=== PATIENT | male | born 1945 | race Caucasian/White ===

== ENCOUNTER 2019-05-24 12:07 | Emergency (ER) | payer BC ==
--- NOTE | 2019-05-24 12:16 | EDM.PDOC ---
ED HPI GENERAL MEDICAL PROBLEM - General Chief Complaint: Upper Extremity Injury/Pain Stated Complaint: L THUMB/HAND INJURY Time Seen by Provider: 05/24/19 12:14 Source of Information: Reports: Patient, RN, RN Notes Reviewed History Limitations: Reports: No Limitations - History of Present Illness INITIAL COMMENTS - FREE TEXT/NARRATIVE: Pt presents to ER from home by POV with c/o bruising and swelling to left thumb & wrist area. Pt does not remember injuring area, and knows of no other cause. Denies any other area of bruising or bleeding. Pt states the area is a little tender, but not significantly so. Pt states the bruising has been there a couple of days. He was concerned because he is leaving to go to [employer] this week. Onset: Unknown/Unsure Duration: Day(s): (2-3), Constant Location: Reports: Upper Extremity, Left Quality: Reports: Ache Severity: Mild Improves with: Reports: Immobilization Worsens with: Reports: Movement Associated Symptoms: Reports: No Other Symptoms - Related Data Allergies Allergy/AdvReac Type Severity Reaction Status Date / Time cat hair/dander Allergy UNKNOWN Uncoded 05/24/19 12:11 Home Meds: Home Meds Loratadine [Claritin] 10 mg PO DAILY 02/19/14 [History] atorvaSTATin Calcium [Atorvastatin Calcium] 20 mg PO DAILY 02/19/14 [History] Past Medical History Cardiovascular History: Reports: High Cholesterol Social & Family History - Family History Family Medical History: Noncontributory - Living Situation & Occupation Living situation: Reports: Occupation: Employed Review of Systems - Review of Systems Review Of Systems: ROS reveals no pertinent complaints other than HPI. ED EXAM, GENERAL - Physical Exam Exam: See Below Exam Limited By: No Limitations General Appearance: Alert, WD/WN, No Apparent Distress Head: Atraumatic, Normocephalic Respiratory/Chest: No Respiratory Distress Cardiovascular: Normal Peripheral Pulses Neurological: Alert, Oriented, CN II-XII Intact, Normal Cognition, Normal Gait, No Motor/Sensory Deficits Psychiatric: Normal Affect, Normal Mood Course - Vital Signs Last Recorded V/S: Last Vital Signs Temp 97.6 F 05/24/19 12:12 Pulse 88 05/24/19 12:12 Resp 16 05/24/19 12:12 BP 157/88 H 05/24/19 12:12 Pulse Ox 97 05/24/19 12:12 - Orders/Labs/Meds Labs: Laboratory Tests 05/24/19 05/24/19 05/24/19 Range/Units 12:31 12:31 12:31 WBC 5.5 (5.0-10.0) 10^3/uL RBC 5.42 (4.6-6.2) 10^6/uL Hgb 15.5 (14.0-18.0) g/dL Hct 45.6 (40.0-54.0) % MCV 84.1 (80-100) fL MCH 28.6 (27.0-34.0) pg MCHC 34.0 (33.0-35.0) g/dL Plt Count 232 (150-450) 10^3/uL Neut % (Auto) 59.9 (42.2-75.2) % Lymph % (Auto) 29.0 (20.5-50.1) % [place] % (Auto) 9.8 H (2-8) % Eos % (Auto) 0.9 L (1.0-3.0) % Baso % (Auto) 0.4 (0.0-1.0) % PT 10.4 (9.0-12.0) SEC INR 1.0 (0.9-1.2) APTT 26.1 (22.0-34.0) SEC Sodium 136 (135-145) mmol/L Potassium 3.5 L (3.6-5.0) mmol/L Chloride 102 (101-111) mmol/L Carbon Dioxide 24.0 (21.0-31.0) mmol/L Anion Gap 13.5 BUN 9 (7-18) mg/dL Creatinine 1.0 (0.6-1.3) mg/dL Est Cr Clr Drug Dosing 66.77 mL/min Estimated GFR (MDRD) > 60 BUN/Creatinine Ratio 9.00 Glucose 104 (74-105) mg/dL Calcium 9.1 (8.4-10.2) mg/dl Total Bilirubin 1.1 H (0.2-1.0) mg/dL AST 26 (10-42) IU/L ALT 20 (10-60) IU/L Alkaline Phosphatase 52 (42-121) IU/L Total Protein 7.4 (6.7-8.2) g/dl Albumin 4.6 (3.2-5.5) g/dl Globulin 2.8 Albumin/Globulin Ratio 1.64 Departure - Departure Time of Disposition: 13:04 Disposition: Home, Self-Care 01 Condition: Good Clinical Impression: Contusion of left hand Qualifiers: Encounter type: initial encounter Qualified Code(s): S60.222A - Contusion of left hand, initial encounter - Discharge Information *PRESCRIPTION DRUG MONITORING PROGRAM REVIEWED*: No *COPY OF PRESCRIPTION DRUG MONITORING REPORT IN PATIENT CONSTANTINE: No Instructions: Hand Contusion Forms: ED Department Discharge Additional Instructions: No specific treatment needed. Have fun in [place]!
[2019-05-24 12:58] LABS: ANION GAP 13.5; CHLORIDE,CL 102 mmol/L (101-111); SODIUM,NA 136 mmol/L (135-145)
== END 2019-05-24 13:08 | disposition home or self-care (01) ==
LOC: DL.ED 12:07
DX: M79.81 Nontraumatic hematoma of soft tissue (principal); E78.00 Pure hypercholesterolemia, unspecified; Z91.048 Other nonmedicinal substance allergy status; Z79.899 Other long term (current) drug therapy
CPT/HCPCS: 36415; 80053; 85025; 85610; 85730; 99283

== ENCOUNTER 2020-09-28 06:06 | Day surgery (SDC) | payer BC ==
[~2020-09-28 06:06] MED LIST: Dextrose 5%-0.45% NaCl 1,000 ML IV SCH; Midazolam 1 MG/ML 2 ML SDV ONE; Sodium Chloride 0.9% 10 ML Syringe FLUSH PRN; fentaNYL 100 MCG/2 ML SDV ONE
[2020-09-28] MEDS ORDERED: fentaNYL 100 MCG/2 ML SDV IV ONE ×3 (06:07→07:11)
[2020-09-28] MEDS ORDERED: Midazolam 1 MG/ML 2 ML SDV IV ONE ×7 (06:07→07:19)
--- NOTE | 2020-09-28 08:01 | OR ---
DATE: 09/28/2020 PROCEDURE: Total colonoscopy. INSTRUMENT USED: [id number] Olympus video colonoscope. PREMEDICATIONS: Fentanyl 100 mcg intravenous, Versed 4 mg intravenous, nasal O2 cannula. The procedure was done under pulse oximetry, BP recording, and radiology services manager. INDICATION: The patient with previous colonic adenoma. Surveillance colonoscopic examination is done for detection of any polypoid lesions and removal, endoscopic hemostasis therapy if needed. DESCRIPTION OF PROCEDURE: Initial rectal exam showed firm prostatic bed. The colonoscope was passed with ease. Numerous scattered diverticula were noted, more so in the distal left colon along with deformity. The scope was passed with ease up to the ileocecal area. Photographs were taken of the normal- appearing cecum identified by appendiceal orifice and double-bulged ileocecal folds. No bleeding was noted from any of the visualized areas at the commencement of the examination. Bowel preparation was found to be adequate, Bush scale 2 in all the regions, total score 6. No stricture. No vascular ectasia. No large isolated ulcerations seen. No evidence of diffuse inflammatory bowel disease in the form of friability, contact bleeding, or ulcerations. No polyp or tumor mass identified. Probing the proximal sides of folds and flexures using adequate distention and clearing up the stool material, withdrawal of the scope was made, cecum to rectum time over 6 minutes. No bleeding was noted from any of the visualized areas at the completion of examination. IMPRESSION: Diverticulosis. The patient tolerated the procedure well. [facility] /[id number]
--- NOTE | 2020-09-28 17:33 | LETTER ---
09/28/2020 RE: RAJI NAJERA : 1945 [place] [address] Srinivasan: Mr. Raji Najera had colonoscopic examination done this morning, and he tolerated the procedure well. I herewith send a copy of the endoscopy note and photographs for your review. Thank you. Sincerely, [facility] /[id number]
== END 2020-09-28 09:34 | disposition home or self-care (01) ==
LOC: DL.ENDO 06:06
PROVIDERS: ATTEND Internal Medicine Gastroenterology
DX: Z12.11 Encounter for screening for malignant neoplasm of colon (principal); K57.30 Diverticulosis of large intestine without perforation or abscess without bleeding; R73.9 Hyperglycemia, unspecified; E78.00 Pure hypercholesterolemia, unspecified; Z86.010 Personal history of colon polyps; Z98.890 Other specified postprocedural states
CPT/HCPCS: 45378; J2250; J3010; J7042

== ENCOUNTER 2021-05-26 16:37 | Emergency (ER) | payer BC ==
[2021-05-26 17:23] LABS: ANION GAP 18.3 mEq/L (7-13); CHLORIDE,CL 102 mmol/L (98-107); SODIUM,NA 140 mmol/L (136-145)
--- NOTE | 2021-05-26 17:46 | EDM.PDOC ---
<Ritchie Miranda - Last Filed: 05/26/21 20:03> ED HPI GENERAL MEDICAL PROBLEM - General Chief Complaint: Respiratory Problem Stated Complaint: CHEST, HARD TIME BREATHING Time Seen by Provider: 05/26/21 17:20 - Related Data Allergies Allergy/AdvReac Type Severity Reaction Status Date / Time cat hair/dander Allergy UNKNOWN Uncoded 05/26/21 17:09 Home Meds: Home Meds Loratadine [Claritin] 10 mg PO DAILY PRN 02/19/14 [History] atorvaSTATin Calcium [Atorvastatin Calcium] 20 mg PO DAILY 02/19/14 [History] Ipratropium [Atrovent 0.03% Nasal [place]] 2 spray INH DAILY PRN 09/24/20 [History] Montelukast Sodium 10 mg PO BEDTIME 09/24/20 [History] Mupirocin Oint [Bactroban Oint] 1 squirt TOP BID 09/24/20 [History] Triamcinolone Acetonide [Nasacort AQ [place]] 2 spray INH BID PRN 09/24/20 [History] diphenhydrAMINE HCL [Diphenhydramine HCl] 25 mg PO BEDTIME PRN 09/24/20 [History] Donepezil HCl [Aricept] 5 mg PO ASDIRECTED 05/26/21 [History] Departure - Departure Time of Disposition: 20:03 Disposition: Home, Self-Care 01 Condition: Fair Clinical Impression: Community acquired pneumonia Qualifiers: Laterality: right Lung location: lower lobe of lung Qualified Code(s): J18.9 - Pneumonia, unspecified organism - Discharge Information *PRESCRIPTION DRUG MONITORING PROGRAM REVIEWED*: No *COPY OF PRESCRIPTION DRUG MONITORING REPORT IN PATIENT CONSTANTINE: No Instructions: Community-Acquired Pneumonia, Adult, [id number] Forms: ED Department Discharge Care Plan Goals: The patient and his were advised of the examination, lab and x-ray results during the visit. The patient was given an IV dose of Rocephin while in the ED. The patient was discharged with a script for Azithromycin (250 mg) #6 to take 2 by mouth on day 1 and 1 by mouth on days 2-5. If the patient has any additional symptoms or concerns, the patient should either return to the ED or visit his primary care facility. <Lulú Wayne - Last Filed: 05/27/21 07:31> ED HPI GENERAL MEDICAL PROBLEM - General Source of Information: Reports: Patient, RN, RN Notes Reviewed, Significant Other History Limitations: Reports: Altered Mental Status (History of dementia) - History of Present Illness INITIAL COMMENTS - FREE TEXT/NARRATIVE: Bo is a 75 y/o male with a history of dementia who presents to the ED via personal vehicle with his due to shortness of breath. The patient reports his transient symptom occurred approximately one hour prior to his arrival to this facility. He states he was putting pop cans in the refrigerator and was suddenly unable to catch his breath. The problem was further exacerbated by climbing the stairs to find his . He denies recent illness, fever, shaking chills, vision changes, dizziness, cough, sore throat, chest pain/pressure, palpitations, nausea, vomiting, or abdominal pain. The patient is vaccinated for COVID. His notes he started Aricept yesterday. The patient denies history of tobacco, alcohol, or recreational drug use. Past Medical History HEENT History: Reports: Impaired Vision, Sinusitis, Other (See Below) Other HEENT History: papilloma of tongue. WEARS CORRECTIVE LENS Cardiovascular History: Reports: High Cholesterol, Hypertension Respiratory History: Reports: None Gastrointestinal History: Reports: None, Colon Polyp Genitourinary History: Other Genitourinary History: Prostatism 2015 Musculoskeletal History: Reports: None Neurological History: Reports: Alzheimers Disease Psychiatric History: Reports: None Endocrine/Metabolic History: Reports: None Hematologic History: Reports: None Immunologic History: Reports: None Oncologic (Cancer) History: Reports: None Dermatologic History: Reports: None - Infectious Disease History Infectious Disease History: Reports: None - Past Surgical History Head Surgeries/Procedures: Reports: None HEENT Surgical History: Reports: Tonsillectomy Cardiovascular Surgical History: Reports: None Respiratory Surgical History: Reports: None GI Surgical History: Reports: Cholecystectomy, Colonoscopy, Hernia Repair/Other, Polypectomy Male Surgical History: Reports: None Endocrine Surgical History: Reports: None Neurological Surgical History: Reports: None Musculoskeletal Surgical History: Reports: Arthroscopic Knee Oncologic Surgical History: Reports: None Dermatological Surgical History: Reports: None Social & Family History - Family History Family Medical History: No Pertinent Family History - Tobacco Use Tobacco Use Status *Q: Never Tobacco User - Caffeine Use Caffeine Use: Reports: Coffee, Soda - Recreational Drug Use Recreational Drug Use: No - Living Situation & Occupation Living situation: Reports: Occupation: Employed ED ROS GENERAL - Review of Systems Review Of Systems: Comprehensive ROS is negative, except as noted in HPI. ED EXAM, GENERAL - Physical Exam Exam: See Below Exam Limited By: No Limitations General Appearance: Alert, No Apparent Distress Eye Exam: Bilateral Eye: EOMI, Normal Inspection, PERRL (3mm) Ears: Normal External Exam, Normal Canal, Hearing Grossly Normal, Normal TMs Ear Exam: Bilateral Ear: Auricle Normal, Canal Normal, TM normal Nose: Normal Inspection, Normal Mucosa, No Blood Throat/Mouth: Normal Inspection, Normal Oropharynx, Normal Voice, No Airway C ompromise Head: Atraumatic, Normocephalic Neck: Normal Inspection, Supple, Non-Tender, Full Range of Motion. No: Lymphadenopathy (L), Lymphadenopathy (R) Respiratory/Chest: No Respiratory Distress, Lungs Clear, Normal Breath Sounds, No Accessory Muscle Use, Chest Non-Tender Cardiovascular: Normal Peripheral Pulses, Regular Rate, Rhythm, No Gallop, No Murmur, No Rub Peripheral Pulses: 2+: Radial (L), Radial (R) GI/Abdominal: Normal Bowel Sounds, Soft, No Distention, No Abnormal Bruit, No Mass, Pelvis Stable (Male) Exam: Deferred Rectal (Males) Exam: Deferred Back Exam: Normal Inspection, Full Range of Motion Extremities: Normal Inspection, Normal Range of Motion, Non-Tender, No Pedal Edema, Normal Capillary Refill Neurological: Alert, Oriented, CN II-XII Intact, Normal Cognition, Normal Gait, Normal Reflexes, No Motor/Sensory Deficits Psychiatric: Normal Affect, Normal Mood Skin Exam: Warm, Dry, Intact, Normal Color, No Rash. No: Cyanosis, Jaundice, Mottled, Pallor #1 Interpretation EKG Date: 05/26/21 Time: 16:45 Rhythm: NSR (1st Degree AVB) Rate (Beats/Min): 81 [place]: LAD-Left [place] Deviation P-Wave: Present QRS: Normal ST-T: Normal QT: Normal MO/PQ Interval: 0.249 Comparison: NA - No Prior EKG EKG Interpretation Comments: NSR with 1st Degree AVB; LAD; q-wave in AVR; No evidence of acute myocardial ischemia Course - Vital Signs Last Recorded V/S: Last Vital Signs Temp 98.4 F 05/26/21 17:04 Pulse 60 05/26/21 19:44 Resp 16 05/26/21 19:44 BP 139/90 05/26/21 19:44 Pulse Ox 95 05/26/21 19:44 - Orders/Labs/Meds Labs: Laboratory Tests 05/26/21 05/26/21 05/26/21 Range/Units 16:50 16:53 16:53 WBC 7.4 (5.0-10.0) 10^3/uL RBC 5.34 (4.6-6.2) 10^6/uL Hgb 16.0 (14.0-18.0) g/dL Hct 46.2 (40.0-54.0) % MCV 86.5 (80-100) fL MCH 30.0 (27.0-34.0) pg MCHC 34.6 (33.0-35.0) g/dL Plt Count 231 (150-450) 10^3/uL Neut % (Auto) 62.4 (42.2-75.2) % Lymph % (Auto) 28.5 (20.5-50.1) % Young % (Auto) 8.3 H (2-8) % Eos % (Auto) 0.3 L (1.0-3.0) % Baso % (Auto) 0.5 (0.0-1.0) % Sodium 140 (136-145) mmol/L Potassium 3.3 L (3.5-5.1) mmol/L Chloride 102 (98-107) mmol/L Carbon Dioxide 23 (21-32) mmol/L Anion Gap 18.3 H (7-13) mEq/L BUN 15 (7-18) mg/dL Creatinine 1.23 (0.70-1.30) mg/dL Est Cr Clr Drug Dosing 50.98 mL/min Estimated GFR (MDRD) 58 BUN/Creatinine Ratio 12.2 (No establ ref range) Glucose 126 H (70-99) mg/dL Lactic Acid (0.4-2.0) mmol/L Calcium 9.4 (8.5-10.1) mg/dL Total Bilirubin 0.9 (0.2-1.0) mg/dL AST 14 L (15-37) U/L ALT 23 (16-63) U/L Alkaline Phosphatase 65 (46-116) U/L Troponin I High Sens 6 (<=76) pg/mL C-Reactive Protein < 0.2 (0.0-0.9) mg/dL B-Natriuretic Peptide 22 (0-100) pg/ml Total Protein 7.3 (6.4-8.2) g/dL Albumin 4.2 (3.4-5.0) g/dL Globulin 3.1 Albumin/Globulin Ratio 1.4 Amylase 65 (25-115) U/L Lipase 157 (73-393) U/L Urine Color (YELLOW) Urine Appearance (CLEAR) Urine pH (5.0-9.0) Ur Specific [place] (1.005-1.030) Urine Protein (NEGATIVE) Urine Glucose (UA) (NEGATIVE) Urine Ketones (NEGATIVE) Urine Occult Blood (NEGATIVE) Urine Nitrite (NEGATIVE) Urine Bilirubin (NEGATIVE) Urine Urobilinogen (0.2-1.0) mg/dL Ur Leukocyte Esterase (NEGATIVE) SARS-CoV-2 RNA (ARTHUR) Negative (NEGATIVE) 05/26/21 05/26/21 Range/Units 16:53 17:51 WBC (5.0-10.0) 10^3/uL RBC (4.6-6.2) 10^6/uL Hgb (14.0-18.0) g/dL Hct (40.0-54.0) % MCV (80-100) fL MCH (27.0-34.0) pg MCHC (33.0-35.0) g/dL Plt Count (150-450) 10^3/uL Neut % (Auto) (42.2-75.2) % Lymph % (Auto) (20.5-50.1) % Young % (Auto) (2-8) % Eos % (Auto) (1.0-3.0) % Baso % (Auto) (0.0-1.0) % Sodium (136-145) mmol/L Potassium (3.5-5.1) mmol/L Chloride (98-107) mmol/L Carbon Dioxide (21-32) mmol/L Anion Gap (7-13) mEq/L BUN (7-18) mg/dL Creatinine (0.70-1.30) mg/dL Est Cr Clr Drug Dosing mL/min Estimated GFR (MDRD) BUN/Creatinine Ratio (No establ ref range) Glucose (70-99) mg/dL Lactic Acid 2.1 H* (0.4-2.0) mmol/L Calcium (8.5-10.1) mg/dL Total Bilirubin (0.2-1.0) mg/dL AST (15-37) U/L ALT (16-63) U/L Alkaline Phosphatase (46-116) U/L Troponin I High Sens (<=76) pg/mL C-Reactive Protein (0.0-0.9) mg/dL B-Natriuretic Peptide (0-100) pg/ml Total Protein (6.4-8.2) g/dL Albumin (3.4-5.0) g/dL Globulin Albumin/Globulin Ratio Amylase (25-115) U/L Lipase (73-393) U/L Urine Color Yellow (YELLOW) Urine Appearance Clear (CLEAR) Urine pH 8.5 (5.0-9.0) Ur Specific [place] 1.015 (1.005-1.030) Urine Protein Negative (NEGATIVE) Urine Glucose (UA) Negative (NEGATIVE) Urine Ketones Negative (NEGATIVE) Urine Occult Blood Negative (NEGATIVE) Urine Nitrite Negative (NEGATIVE) Urine Bilirubin Negative (NEGATIVE) Urine Urobilinogen 0.2 (0.2-1.0) mg/dL Ur Leukocyte Esterase Negative (NEGATIVE) SARS-CoV-2 RNA (ARTHUR) (NEGATIVE) Meds: Medications Discontinued Medications Generic Name Dose Route Start Last Admin Trade Name Freq PRN Reason Stop Dose Admin Ceftriaxone Sodium 1 gm/ 50 mls @ 100 mls/hr 05/26/21 19:29 05/26/21 19:41 Sodium Chloride IV 05/26/21 19:58 100 mls/hr ONETIME ONE Administration - Radiology Interpretation Free Text/Narrative:: [facility] Final Radiology Report Call: [phone] assistance Online chat: [email or web address] Name: BO NAJERA Age: 75Years M Date: 05/26/2021 SSN: -- : [id number] Study: CR CHEST 1V FRONTAL Requesting Physician: Lulú Wayne Images: 1 Addl Studies: Provided Clinical History: Chest pain Contrast: Contrast Medium: Contrast Amount: Contrast Method: Page 1 of 2 PROCEDURE INFORMATION: Exam: XR Chest Exam date and time: 05/26/2021 5:59 PM Age: 75 years old Clinical indication: Pain; Left-sided; Additional info: Chest pain TECHNIQUE: Imaging protocol: XR of the chest. Views: 1 view. COMPARISON: No relevant prior studies available. FINDINGS: Lungs: Patchy densities in the right lung base, which have a reticulonodular appearance. Lungs otherwise appear clear radiographically. No diffuse airspace disease. Pleural spaces: No pneumothorax or pleural effusions. Heart/Mediastinum: No significant cardiomegaly. Vasculature: Thoracic aorta appears mildly ectatic. Diaphragm: Mild elevation of the right diaphragm. Bones/joints: No acute abnormality. IMPRESSION: 1. Patchy densities in the right lung base, which have a reticulonodular appearance. In an acute setting, this could be due to a small pneumonia/infectious bronchiolitis. Chronic fibrosis could also have this appearance. Recommend clinical correlation. 2. See above for remaining findings. Thank you for allowing us to participate in the care of your patient. Dictated and Authenticated by: Chelsie Small MD 05/26/2021 7:18 PM Central Time ([place] & [place]) - Re-Assessments/Exams Free Text/Narrative Re-Assessment/Exam: 05/26/21 Care of patient transferred to Nils Miranda PA-C at 1900. Sepsis Event Note (ED) - Evaluation Sepsis Screening Result: No Definite Risk - Focused Exam Vital Signs: Vital Signs Pulse Resp BP Pulse Ox 05/26/21 19:44 60 16 139/90 95
--- NOTE | 2021-05-26 19:19 | CR ---
PROCEDURE INFORMATION: Exam: XR Chest Exam date and time: 05/26/2021 5:59 PM Age: 75 years old Clinical indication: Pain; Left-sided; Additional info: Chest pain TECHNIQUE: Imaging protocol: XR of the chest. Views: 1 view. COMPARISON: No relevant prior studies available. FINDINGS: Lungs: Patchy densities in the right lung base, which have a reticulonodular appearance. Lungs otherwise appear clear radiographically. No diffuse airspace disease. Pleural spaces: No pneumothorax or pleural effusions. Heart/Mediastinum: No significant cardiomegaly. Vasculature: Thoracic aorta appears mildly ectatic. Diaphragm: Mild elevation of the right diaphragm. Bones/joints: No acute abnormality. IMPRESSION: 1. Patchy densities in the right lung base, which have a reticulonodular appearance. In an acute setting, this could be due to a small pneumonia/infectious bronchiolitis. Chronic fibrosis could also have this appearance. Recommend clinical correlation. 2. See above for remaining findings.
[2021-05-26] MEDS: cefTRIAXone 1 GM in Sodium Chloride 0.9% 50 ML IV ONE (19:41)
== END 2021-05-26 20:24 | disposition home or self-care (01) ==
LOC: DL.ED 16:37
DX: J18.9 Pneumonia, unspecified organism (principal); E78.00 Pure hypercholesterolemia, unspecified; I10 Essential (primary) hypertension; G30.9 Alzheimer's disease, unspecified; F02.80 Dementia in other diseases classified elsewhere, unspecified severity, without behavioral disturbance, psychotic disturbance, mood disturbance, and anxiety; I44.0 Atrioventricular block, first degree; Z91.048 Other nonmedicinal substance allergy status; Z79.899 Other long term (current) drug therapy; Z20.822 Contact with and (suspected) exposure to COVID-19
CPT/HCPCS: 36415; 71045; 80053; 81003; 82150; 83605; 83690; 83880; 84484; 85025; 86140; 87635; 93005; 96365; 99285; J0696; U0002